=== PATIENT | female | born 1955 | race Caucasian/White ===

== ENCOUNTER 2018-04-08 06:18 | Inpatient (IN) ==
[2018-04-08] MEDS ORDERED: CeFAZolin Syr 2,000MG/20 ML 2,000 MG/20 ML SYRINGE IVPB ONE (06:31)
[2018-04-08] MEDS ORDERED: Albuterol 2.5 MG/3 ML NEBULIZER IH ONE ×2 (06:31→09:24)
[2018-04-08] MEDS ORDERED: Albuterol 2.5 MG/3 ML NEBULIZER ONE (06:33)
[2018-04-08] MEDS ORDERED: Acetaminophen IV 1,000 MG/100 ML INFUS..BTL IVPB ONE (06:50)
[2018-04-08] MEDS ORDERED: Scopolamine Patch 1.5 MG PATCH.TD72 TD ONE (06:50)
[2018-04-08] MEDS ORDERED: Lidocaine -MPF 4% 5 ML AMPUL ONE (07:02)
[2018-04-08] MEDS ORDERED: *HR* Propofol 200 MG/20 ML VIAL IVP ONE ×3 (07:02→09:47)
[2018-04-08] MEDS ORDERED: Dexamethasone 4 MG/ML VIAL ONE (07:02)
[2018-04-08] MEDS ORDERED: Ondansetron 4 MG/2 ML VIAL ONE (07:02)
[2018-04-08] MEDS ORDERED: Lidocaine -MPF 2% 2 ML VIAL ONE ×3 (07:02→10:12)
[2018-04-08] MEDS ORDERED: *HR* Succinylcholine 200 MG/10 ML VIAL IVP ONE (07:02)
[2018-04-08] MEDS ORDERED: *HR* Rocuronium Bromide 50 MG/5 ML VIAL ONE (07:02)
[2018-04-08] MEDS ORDERED: *HR* Remifentanil 1 MG VIAL IVP ONE (07:03)
[2018-04-08] MEDS ORDERED: *HR* FentaNYL (PF) 100 MCG/2 ML VIAL ONE (07:03)
[2018-04-08] MEDS ORDERED: *HR* Midazolam HCl 2 MG/2 ML VIAL ONE (07:03)
[2018-04-08] MEDS: Ringers Solution, Lactated 1,000 ML IVC SCH ×3 (07:32→17:50)
[2018-04-08] MEDS ORDERED: Bacitracin 50,000 UNIT, Polymyxin B Sulfate 500,000 UNIT, Sodium Chloride IRRigation 1,... IR ONE (07:45)
[2018-04-08] MEDS ORDERED: *HR* Magnesium Sulfate 1 GM/2 ML VIAL ONE ×2 (08:13→09:35)
[2018-04-08] MEDS ORDERED: Amiodarone Premix 150 MG/100 ML BAG IVPB ONE (08:20)
[2018-04-08] MEDS ORDERED: Amiodarone 300 MG in D5% in Water 100 ML IVPB ONE (08:20)
[2018-04-08] MEDS ORDERED: *HR* PHENYLEPHRINE 1,000 MCG/10 ML SYRINGE IVP ONE ×2 (08:25→09:37)
[2018-04-08] MEDS ORDERED: EPHEDrine 50 MG/ML VIAL ONE (08:28)
[2018-04-08] MEDS ORDERED: Dexamethasone 4 MG/ML VIAL IVP ONE (09:24)
[2018-04-08] MEDS ORDERED: Ondansetron 4 MG/2 ML VIAL IVP ONE (09:24)
[2018-04-08] MEDS ORDERED: Morphine Sulfate Oral CONC 10 MG/0.5 ML ORAL.SYG SL PRN (09:24)
[2018-04-08] MEDS ORDERED: *HR* Promethazine 25 MG/ML VIAL IVP PRN (09:24)
[2018-04-08] MEDS ORDERED: *HR* OxyCODONE Immed Rel 5 MG TABLET PO PRN (09:24)
[2018-04-08] MEDS ORDERED: *HR* HYDROmorphone 2 MG TABLET PO PRN (09:24)
[2018-04-08] MEDS ORDERED: Ketorolac 30 MG/ML VIAL ONE (10:17)
[2018-04-08] MEDS ORDERED: *HR* HYDROmorphone 2 MG/ML SYRINGE ONE (10:22)
[2018-04-08] MEDS ORDERED: Naloxone 0.4 MG/ML INJ IVP PRN (12:15)
[2018-04-08] MEDS ORDERED: Acetaminophen 325 MG TABLET PO PRN (12:15)
[2018-04-08] MEDS ORDERED: Ondansetron 4 MG/2 ML VIAL IVP PRN (12:15)
[2018-04-08] MEDS: *HR* OxyCODONE Immed Rel 5 MG TABLET PO PRN ×3 (15:41→23:55)
[2018-04-08] MEDS: *HR* HYDROcodone/Acet 5/325 mg TABLET PO PRN (17:49)
[2018-04-09 02:26] LABS: Basophils % 0.1 %; Hematocrit 32.9 % (35.3-44.9); Immature Granulocytes % 0.6 % (0-4); Lymphocytes # 1.3 K/mcL (0.6-4.6); Lymphocytes % 7.4 %; Mean Corpuscular Hemoglobin 29.9 pg (28.0-33.3); Mean Corpuscular Volume 85.7 fL (83.0-100.0); Mean Platelet Volume 11.9 fL (9.4-12.4); Monocytes # 0.9 K/mcL (0.0-1.3); Monocytes % 5.5 %; Platelet Count 201 K/mcL (140-400); Red Blood Count 3.84 M/mcL (3.82-4.97); Red Cell Distribution Width 12.5 % (11.5-14.5); Segmented Neutrophils % 86.4 %
[2018-04-09 02:27] LABS: Neutrophils # 14.8 K/mcL (1.6-8.9); White Blood Count 17.1 K/mcL (4.3-11.1)
[2018-04-09 02:28] LABS: Hemoglobin 11.5 g/dL (11.5-15.4)
[2018-04-09 02:49] LABS: BUN/Creatinine Ratio 14 (6-26); Blood Urea Nitrogen 15 mg/dL (8-23); Carbon Dioxide 22 mEq/L (23-29); Chloride 101 mEq/L (98-107); Glucose 137 mg/dL (70-105); Osmolality,Calculated 269 (280-300); Potassium 4.6 mEq/L (3.5-5.1); Sodium 128 mEq/L (136-145); eGFR For African Americans > 60 (> 60); eGFR For Non-African Americans 54 (> 60)
[2018-04-09] MEDS: *HR* HYDROcodone/Acet 5/325 mg TABLET PO PRN ×2 (04:52→12:26)
[2018-04-09] MEDS: hydroCHLOROthiazide 25 MG TABLET PO SCH (09:07)
[2018-04-09] MEDS: Aspirin 81 MG TAB.CHEW PO SCH (09:07)
[2018-04-09] MEDS: amLODIPine 5 MG TABLET PO SCH (09:08)
[2018-04-09] MEDS: lisinopriL 20 MG TABLET PO SCH (09:08)
[2018-04-09] MEDS: *HR* OxyCODONE Immed Rel 5 MG TABLET PO PRN ×3 (09:08→23:04)
[2018-04-09] MEDS: Ringers Solution, Lactated 1,000 ML IVC SCH (09:10)
[2018-04-10 01:47] LABS: Hemoglobin 10.8 g/dL (11.5-15.4); Mean Corpuscular HGB Conc 33.8 g/dL (31.6-35.5); Mean Corpuscular Hemoglobin 29.5 pg (28.0-33.3); Mean Corpuscular Volume 87.4 fL (83.0-100.0); Mean Platelet Volume 11.7 fL (9.4-12.4); Platelet Count 203 K/mcL (140-400); Red Blood Count 3.66 M/mcL (3.82-4.97); Red Cell Distribution Width 12.8 % (11.5-14.5); White Blood Count 11.7 K/mcL (4.3-11.1)
[2018-04-10 02:06] LABS: BUN/Creatinine Ratio 17 (6-26); Blood Urea Nitrogen 16 mg/dL (8-23); Carbon Dioxide 26 mEq/L (23-29); Chloride 101 mEq/L (98-107); Glucose 107 mg/dL (70-105); Osmolality,Calculated 278 (280-300); Potassium 4.4 mEq/L (3.5-5.1); Sodium 133 mEq/L (136-145); eGFR For African Americans > 60 (> 60); eGFR For Non-African Americans 59 (> 60)
[2018-04-10] MEDS: *HR* OxyCODONE Immed Rel 5 MG TABLET PO PRN ×3 (02:55→13:09)
[2018-04-10 05:52] LABS: Basophils % 0.3 %; Eosinophils # 0.1 K/mcL (0.0-0.6); Eosinophils % 0.5 %; Immature Granulocytes % 0.4 % (0-4); Lymphocytes # 3.1 K/mcL (0.6-4.6); Lymphocytes % 26.1 %; Monocytes % 8.3 %; Neutrophils # 7.5 K/mcL (1.6-8.9); Segmented Neutrophils % 64.4 %
[2018-04-10] MEDS: amLODIPine 5 MG TABLET PO SCH (08:39)
[2018-04-10] MEDS: lisinopriL 20 MG TABLET PO SCH (08:39)
[2018-04-10] MEDS: hydroCHLOROthiazide 25 MG TABLET PO SCH (08:42)
[2018-04-10] MEDS: Aspirin 81 MG TAB.CHEW PO SCH (08:44)
[2018-04-11] MEDS: *HR* OxyCODONE Immed Rel 5 MG TABLET PO PRN ×2 (00:53→08:31)
[2018-04-11] MEDS: lisinopriL 20 MG TABLET PO SCH (08:13)
[2018-04-11] MEDS: amLODIPine 5 MG TABLET PO SCH (08:13)
[2018-04-11] MEDS: hydroCHLOROthiazide 25 MG TABLET PO SCH (08:16)
[2018-04-11] MEDS: Aspirin 81 MG TAB.CHEW PO SCH (08:16)
[2018-04-11 12:07] VITALS: BP 97/48
== END 2018-04-11 15:50 | disposition home or self-care (01) ==
LOC: SAMDAY 06:18 → 3NENU 12:03
PROVIDERS: ADMIT Orthopaedic Surgery Orthopaedic Surgery of the Spine; ATTEND Orthopaedic Surgery Orthopaedic Surgery of the Spine